=== PATIENT | male | born 1995 | race Caucasian/White ===

== ENCOUNTER 2017-12-17 07:16 | Emergency (ER) | payer BC ==
[~2017-12-17] VITALS: Ht 175.3 cm; Wt 101.0 kg
[2017-12-17 09:51] VITALS: BP 130/84
== END 2017-12-17 09:52 | disposition home or self-care (01) ==
LOC: ER 07:16
DX: J98.8 Other specified respiratory disorders (principal); R03.0 Elevated blood-pressure reading, without diagnosis of hypertension
CPT/HCPCS: 71045; 99283